=== PATIENT | female | born 1975 | race Caucasian/White ===

== ENCOUNTER 2017-11-27 20:11 | Emergency (ER) | payer OTHER ==
[2017-11-27 20:36] VITALS: RESP 18
[2017-11-27] MEDS ORDERED: DIPH,PERTUS(ACELL)TETVAC-LF 0.5 ML VIAL IM ONE (21:16)
--- NOTE | 2017-11-27 21:25 | ED ---
General Adult HPI - General Chief complaint: Wound/Laceration Stated complaint: thumb lac Time Seen by Provider: 11/27/17 21:05 Source: patient, RN notes reviewed Mode of arrival: ambulatory Limitations: no limitations - History of Present Illness Initial comments: 42-year-old female presents to the emergency department with a chief complaint of left thumb laceration. She cut it with a knife today. She's not to have tenderness. She states it does hurt to move the thumb. She denies any other injury from the incident. She denies any other complaints.Patient denies any recent fever, chills, shortness of breath, chest pain, back pain, abdominal pain , nausea vomiting, numbness or tingling, dysuria or hematuria, constipation or diarrhea, headaches or visual changes, or any other current symptoms. - Related Data Allergies Allergy/AdvReac Type Severity Reaction Status Date / Time guaifenesin [From Robitussin] Allergy Unknown Verified 11/27/17 20:37 Childhood Review of Systems ROS Statement: Those systems with pertinent positive or pertinent negative responses have been documented in the HPI. ROS Other: All systems not noted in ROS Statement are negative. Past Medical History Past Medical History: No Reported History History of Any Multi-Drug Resistant Organisms: None Reported Additional Past Surgical History / Comment(s): thyroidectomy Past Psychological History: No Psychological Hx Reported Smoking Status: Current every day smoker Past Alcohol Use History: None Reported Past Drug Use History: None Reported General Exam - General Exam Comments Initial Comments: General: The patient is awake and alert, in no distress, and does not appear acutely ill. Neck: The neck is supple, there is no tenderness. Cardiovascular: There is a regular rate and rhythm. No murmur, rub or gallop is appreciated. Respiratory: Lungs are clear to auscultation, respirations are non-labored, breath sounds are equal. No wheezes, stridor, rales, or rhonchi. Musculoskeletal: Sensation intact with 2+ pulses throughout the left upper x- ray. Full range of motion of left wrist and left hand. Patient does appear to have 3-1/2 cm laceration to the left thumb. Normal capillary refill. No bony tenderness. Neurological: CN II-XII intact, There are no obvious motor or sensory deficits. Coordination appears grossly intact. Speech is normal. Skin: Skin is warm and dry and no rashes or lesions are noted. Psychiatric: Normal mood and affect. Limitations: no limitations Course Vital Signs 11/27/17 20:33 Temperature 98.3 F Pulse Rate 100 Respiratory 18 Rate Blood Pressure 136/80 O2 Sat by Pulse 98 Oximetry Procedures - Procedures Initial comment: The skin was anesthetized with 1% lidocaine. The laceration was then cleansed with Betadine and irrigated with normal saline. The wound was inspected, and there was no evidence of injury to deep structures. No foreign body was noted in the wound. A total of 3 skin sutures were placed utilizing 5-0 nylon to a 4 cm laceration of the left thumb Medical Decision Making - Medical Decision Making 42-year-old female presents for left thumb laceration. This time she was offered an x-ray to search for foreign bodies and she states she does not need to have this done. At this time patient underwent suture care. We discussed return parameters were discussed follow-up and all questions. Patient stated that she understood and she is agreement this plan. All questions have been answered. Patient will be discharged home. Disposition Clinical Impression: Laceration of left thumb Disposition: HOME SELF-CARE Condition: Stable Instructions: Care For Your Stitches (ED) Additional Instructions: Please return to the emergency room in 8-10 days to have sutures removed. Please leave wound covered for the first 24-48 hours and then leave open to air after that time. Please use clean soap and water to clean the suture area to prevent scabbing over the top of your sutures. Please watch for any signs of infection which may include but not limited to increased pain, swelling, redness , fever or chills. Please return to the emergency room if any signs of infection do occur. Please return to the emergency room for any other concerns or complications. Please use medication as discussed. Please follow up with family doctor if symptoms have not improved over the next two days. Please return to the emergency room if your symptoms increase or worsen or for any other concerns. Referrals: Dionisio Montero DO [Primary Care Provider] - 1-2 days Time of Disposition: 21:41
[2017-11-27 22:15] VITALS: BP 111/88; PULSE 89; TEMP 98.7
== END 2017-11-27 22:16 | disposition home or self-care (01) ==
LOC: EC 20:11
DX: S61.012A Laceration without foreign body of left thumb without damage to nail, initial encounter (principal); F17.200 Nicotine dependence, unspecified, uncomplicated; Z88.8 Allergy status to other drugs, medicaments and biological substances; Z23 Encounter for immunization; W26.0XXA Contact with knife, initial encounter; Y93.89 Activity, other specified
CPT/HCPCS: 12002; 90471; 90715; 99283

== ENCOUNTER → 2023-10-20 | Outpatient (CLI) | payer OTHER ==
[2023-10-21 02:30] LABS: Basophils # (A) 0.07 X 10*3/uL (0.00-0.10); Basophils % (A) 0.6 %; Eosinophils # (A) 0.29 X 10*3/uL (0.04-0.35); Eosinophils % (A) 2.7 %; HCT 42.7 % (37.2-46.3); HGB 13.2 g/dL (12.0-15.0); Lymphocytes # (A) 3.98 X 10*3/uL (0.90-5.00); Lymphocytes % (A) 36.6 %; MCH 29.5 pg (27.0-32.0); MCHC 30.9 g/dL (32.0-37.0); MCV 95.5 FL (80.0-97.0); Mean Platelet Volume 12.5 FL (9.5-12.2); Monocytes # (A) 0.56 X 10*3/uL (0.20-1.00); Monocytes % (A) 5.2 %; NRBC Per 100 WBC 0 X 10*3/uL (0.00-0.01); Neutrophils # (A) 5.93 X 10*3/uL (1.80-7.70); Neutrophils % (A) 54.6 %; Platelet Count 297 X 10*3/uL (140-440); RBC 4.47 X 10*6/uL (4.10-5.20); RDW 14.9 % (11.5-14.5); WBC 10.86 X 10*3/uL (4.50-10.00)
[2023-10-21 03:05] LABS: Estradiol 24.6 pg/mL; Testosterone 22.9 ng/dL (9.01-47.94)
[2023-10-21 03:46] LABS: Progesterone 0.1 ng/mL
[2023-10-21 03:49] LABS: Follicle Stimulating Hormone 33.4 mIU/mL
--- NOTE | 2023-10-21 07:52 | US ---
EXAMINATION TYPE: US pelvic complete DATE OF EXAM: 10/20/2023 COMPARISON: NONE CLINICAL INDICATION: Female, 48 years old with history of N92.6 IRREGULAR MENSTRUATION, UNSPECIFIED; Pt states she has been bleeding since 07/19/23. G0. No pelvic surgeries. Hx of PCOS per pt TECHNIQUE: . Transabdominal sonographic images of the pelvis were acquired. Pt refused a transvag inal exam Date of LMP: Pt has been bleeding since 07/19/23. She states she did not have a period for 6 years b efore that. Slightly limited due to body habitus EXAM MEASUREMENTS: Uterus: 8.6 x 4.9 x 4.1 cm Endometrial Stripe: 2.2 cm Right Ovary: 2.6 x 1.8 x 1.4 cm Left Ovary: Not seen 1. Uterus: Anteverted wnl 2. Endometrium: Endo is thickened without vascularity 3. Right Ovary: wnl 4. Left Ovary: Not seen due to bowel and body habitus 5. Bilateral Adnexa: wnl 6. Posterior cul-de-sac: wnl IMPRESSION: Thickened endometrium. Correlate clinically.
== END | disposition home or self-care (01) ==
LOC: RADUSWWP 16:08
PROVIDERS: ATTEND Obstetrics & Gynecology
DX: R93.89 Abnormal findings on diagnostic imaging of other specified body structures (principal); N92.6 Irregular menstruation, unspecified; E28.2 Polycystic ovarian syndrome
CPT/HCPCS: 76856; 82670; 83001; 84144; 84402; 84403; 84439; 84443; 85025; 86800